=== PATIENT | male | born 1975 | race Caucasian/White ===

== ENCOUNTER 2022-06-24 10:37 | Emergency (ER) | payer OTHER ==
[~2022-06-24] VITALS: Ht 165.1 cm; Wt 59.1 kg
[2022-06-24 10:53] VITALS: BP 152/93
[2022-06-24 11:05] LABS: GLUCOMETER DEV NAME(LOC) ERT.5; GLUCOSE,POINT OF CARE 174 MG/DL (70-110)
== END 2022-06-24 11:36 | disposition left against medical advice (07) ==
LOC: EMS 10:47
DX: Z53.21 Procedure and treatment not carried out due to patient leaving prior to being seen by health care provider (principal); E11.9 Type 2 diabetes mellitus without complications
CPT/HCPCS: 82962

== ENCOUNTER 2022-06-27 10:59 | Emergency (ER) | payer OTHER ==
[~2022-06-27] VITALS: Ht 167.6 cm; Wt 61.8 kg
[2022-06-27] MEDS ORDERED: DOXYCYCLINE HYCLATE 100 MG TABLET PO ONE ×2 (12:00→12:15)
[2022-06-27] MEDS ORDERED: LIDOCAINE 1% 10 ML VIAL SQ ONE (12:00)
[2022-06-27] MEDS ORDERED: CEPHALEXIN MONOHYDRATE 500 MG CAPSULE PO ONE ×2 (12:00→12:15)
[2022-06-27] MEDS ORDERED: BENZTROPINE MESYLATE 1 MG TABLET PO ONE (12:15)
[2022-06-27] MEDS ORDERED: HALOPERIDOL LACTATE 5 MG/ML VIAL IM ONE (12:15)
[2022-06-27] MEDS ORDERED: IBUPROFEN 600 MG TABLET PO ONE (12:45)
[2022-06-27] MEDS ORDERED: CEPH-558 PO (12:57)
[2022-06-27] MEDS ORDERED: DOXY-354 PO (12:57)
[2022-06-27] MEDS ORDERED: IBUP-1554 PO (12:57)
[2022-06-27] MEDS ORDERED: HALO5TAB23 PO (12:57)
[2022-06-27] MEDS ORDERED: BENZ1TAB96 PO (12:57)
[2022-06-27 13:13] VITALS: BP 150/82
== END 2022-06-27 13:13 | disposition home or self-care (01) ==
LOC: EMS 11:02
DX: L03.011 Cellulitis of right finger (principal); L02.511 Cutaneous abscess of right hand; F20.0 Paranoid schizophrenia; F32.A Depression, unspecified; E11.9 Type 2 diabetes mellitus without complications; I10 Essential (primary) hypertension
CPT/HCPCS: 99284; 10060; 87205; 82962; 73130; 96372; 87070; J1630; J3490; 87186

== ENCOUNTER 2022-10-30 10:32 | Emergency (ER) | payer OTHER ==
[~2022-10-30] VITALS: Ht 170.2 cm; Wt 55.9 kg
[~2022-10-30 10:32] MED LIST: BENZ1TAB96 PO; CEPH-558 PO; DOXY-354 PO; HALO5TAB23 PO; IBUP-1554 PO
[2022-10-30 11:32] LABS: BASOPHILS % (AUTO) 0.7 % (0.0-2.0); EOSINOPHILS % (AUTO) 0.5 % (1.0-6.0); HEMATOCRIT 38.2 % (41-53); HEMOGLOBIN 12.5 g/dL (13.5-17.5); LYMPHOCYTES # (AUTO) 1.7 K/uL (1.0-4.8); LYMPHOCYTES % (AUTO) 20.5 % (22.0-44.0); MEAN CORPUSCULAR HEMOGLOBIN 30.5 pg (26.0-34.0); MEAN CORPUSCULAR HGB CONC 32.7 G/dL (31.0-37.0); MEAN CORPUSCULAR VOLUME 93 fL (80-100); MONOCYTES # (AUTO) 0.5 K/uL (0.1-1.0); MONOCYTES % (AUTO) 6.5 % (2.0-9.0); NEUTROPHILS # (AUTO) 5.9 K/uL (1.8-7.7); NEUTROPHILS % (AUTO) 71.8 % (40.0-70.0); PLATELET COUNT (AUTO) 336 K/uL (150-450); RED CELL DISTRIBUTION WIDTH 15.3 % (11.5-14.5)
[2022-10-30 11:42] LABS: ANION GAP 6 mmol/L (8-16); CALCIUM, TOTAL 8.6 mg/dL (8.8-10.5); CARBON DIOXIDE 30 mmol/L (22-29); CHLORIDE 104 mmol/L (98-107); CREATININE 0.85 mg/dL (0.60-1.30); GLOMERULAR FILTR. RATE CALC > 60 mL/min (>60); GLUCOSE,RANDOM 133 mg/dL (70-110); POTASSIUM 3.7 mmol/L (3.5-5.1); SODIUM SERUM 140 mmol/L (136-145); UREA NITROGEN, BLOOD 18 mg/dL (7-18)
[2022-10-30] MEDS ORDERED: OLANZapine 5 MG TABLET PO ONE (11:45)
[2022-10-30 11:48] LABS: ALANINE AMINOTRANSFERASE 47 U/L (12-78); ALBUMIN 3.7 g/dL (3.4-5.0); ALKALINE PHOSPHATASE 102 U/L (46-116); ASPARTATE AMINOTRANSFERASE 36 U/L (15-37); BILIRUBIN,TOTAL 0.4 mg/dL (0.1-1.0); TOTAL PROTEIN, SERUM 7.5 g/dL (6.4-8.2)
[2022-10-30 13:00] VITALS: BP 138/81
== END 2022-10-30 13:17 | disposition home or self-care (01) ==
LOC: EMS 10:50
DX: F20.9 Schizophrenia, unspecified (principal); F32.A Depression, unspecified; E11.9 Type 2 diabetes mellitus without complications; I10 Essential (primary) hypertension
CPT/HCPCS: 99284; 80053; 85025; 36415; G0480

== ENCOUNTER 2022-11-03 09:38 | Emergency (ER) | payer OTHER ==
[~2022-11-03] VITALS: Ht 170.2 cm; Wt 57.3 kg
[2022-11-03] MEDS ORDERED: OLAN5TAB52 PO (10:10)
[2022-11-03 11:03] LABS: ANION GAP 2 mmol/L (8-16); BASOPHILS % (AUTO) 0.9 % (0.0-2.0); CALCIUM, TOTAL 8.7 mg/dL (8.8-10.5); CARBON DIOXIDE 32 mmol/L (22-29); CHLORIDE 107 mmol/L (98-107); GLUCOSE,RANDOM 101 mg/dL (70-110); HEMATOCRIT 39.9 % (41-53); HEMOGLOBIN 13.2 g/dL (13.5-17.5); LYMPHOCYTES % (AUTO) 19.2 % (22.0-44.0); MEAN CORPUSCULAR HEMOGLOBIN 30.8 pg (26.0-34.0); MEAN CORPUSCULAR VOLUME 93 fL (80-100); MONOCYTES # (AUTO) 0.5 K/uL (0.1-1.0); MONOCYTES % (AUTO) 9.7 % (2.0-9.0); NEUTROPHILS # (AUTO) 3.7 K/uL (1.8-7.7); NEUTROPHILS % (AUTO) 69.2 % (40.0-70.0); PLATELET COUNT (AUTO) 322 K/uL (150-450); POTASSIUM 4.7 mmol/L (3.5-5.1); RED BLOOD CELL COUNT(AUTO) 4.28 MIL/uL (4.50-5.90); RED CELL DISTRIBUTION WIDTH 14.6 % (11.5-14.5); SODIUM SERUM 141 mmol/L (136-145); UREA NITROGEN, BLOOD 22 mg/dL (7-18)
[2022-11-03 11:04] LABS: GLOMERULAR FILTR. RATE CALC > 60 mL/min (>60)
[2022-11-03 11:10] LABS: ALANINE AMINOTRANSFERASE 36 U/L (12-78); ALBUMIN 3.7 g/dL (3.4-5.0); ALKALINE PHOSPHATASE 103 U/L (46-116); ASPARTATE AMINOTRANSFERASE 20 U/L (15-37); BILIRUBIN,TOTAL 0.2 mg/dL (0.1-1.0); TOTAL PROTEIN, SERUM 7.6 g/dL (6.4-8.2)
[2022-11-03 12:42] VITALS: BP 126/70
== END 2022-11-03 12:43 | disposition home or self-care (01) ==
LOC: EMS 09:40
DX: F20.9 Schizophrenia, unspecified (principal); F32.A Depression, unspecified; E11.9 Type 2 diabetes mellitus without complications; I10 Essential (primary) hypertension
CPT/HCPCS: 99284; 80053; 85025; 36415; G0480

== ENCOUNTER 2022-11-04 12:01 | Emergency (ER) | payer OTHER ==
[~2022-11-04] VITALS: Ht 167.6 cm; Wt 68.2 kg
[~2022-11-04 12:01] MED LIST changes: -CEPH-558 PO; -DOXY-354 PO; -IBUP-1554 PO; +OLAN5TAB52 PO
[2022-11-04 12:03] VITALS: BP 132/69
[2022-11-04 12:49] LABS: EOSINOPHILS % (AUTO) 1.7 % (1.0-6.0); HEMATOCRIT 36.6 % (41-53); HEMOGLOBIN 12.1 g/dL (13.5-17.5); LYMPHOCYTES # (AUTO) 1.5 K/uL (1.0-4.8); LYMPHOCYTES % (AUTO) 31.2 % (22.0-44.0); MEAN CORPUSCULAR HEMOGLOBIN 30.7 pg (26.0-34.0); MEAN CORPUSCULAR VOLUME 93 fL (80-100); MONOCYTES # (AUTO) 0.5 K/uL (0.1-1.0); MONOCYTES % (AUTO) 10.7 % (2.0-9.0); NEUTROPHILS # (AUTO) 2.6 K/uL (1.8-7.7); NEUTROPHILS % (AUTO) 55.4 % (40.0-70.0); PLATELET COUNT (AUTO) 290 K/uL (150-450); RED BLOOD CELL COUNT(AUTO) 3.94 MIL/uL (4.50-5.90); RED CELL DISTRIBUTION WIDTH 14.6 % (11.5-14.5)
[2022-11-04 12:57] LABS: ANION GAP 7 mmol/L (8-16); CALCIUM, TOTAL 8.5 mg/dL (8.8-10.5); CARBON DIOXIDE 28 mmol/L (22-29); CHLORIDE 108 mmol/L (98-107); CREATININE 0.69 mg/dL (0.60-1.30); GLUCOSE,RANDOM 117 mg/dL (70-110); POTASSIUM 3.7 mmol/L (3.5-5.1); SODIUM SERUM 143 mmol/L (136-145); UREA NITROGEN, BLOOD 18 mg/dL (7-18)
[2022-11-04 13:01] LABS: GLOMERULAR FILTR. RATE CALC > 60 mL/min (>60)
[2022-11-04 13:03] LABS: ALANINE AMINOTRANSFERASE 28 U/L (12-78); ALBUMIN 3.3 g/dL (3.4-5.0); ALKALINE PHOSPHATASE 94 U/L (46-116); ASPARTATE AMINOTRANSFERASE 19 U/L (15-37); BILIRUBIN,TOTAL 0.2 mg/dL (0.1-1.0); TOTAL PROTEIN, SERUM 6.7 g/dL (6.4-8.2)
== END 2022-11-04 14:00 | disposition left against medical advice (07) ==
LOC: EMS 12:34
DX: F20.9 Schizophrenia, unspecified (principal); F32.A Depression, unspecified; E11.9 Type 2 diabetes mellitus without complications; I10 Essential (primary) hypertension
CPT/HCPCS: 99283; 80053; 85025; 36415; G0480

== ENCOUNTER 2023-04-20 11:46 | Emergency (ER) | payer OTHER ==
[~2023-04-20] VITALS: Ht 162.6 cm; Wt 70.5 kg
[~2023-04-20 11:46] MED LIST changes: +BENZ1TAB84 PO; -BENZ1TAB96 PO
[2023-04-20 11:56] VITALS: BP 129/83; PULSE 89; RESP 20; TEMP 98.6
== END 2023-04-20 13:52 | disposition left against medical advice (07) ==
LOC: EMS 11:46
DX: Z53.21 Procedure and treatment not carried out due to patient leaving prior to being seen by health care provider (principal)
CPT/HCPCS: 99281; Z7502

== ENCOUNTER 2023-07-30 02:57 | Inpatient (IN) | payer MEDICAID, OTHER ==
[~2023-07-30] VITALS: Ht 170.2 cm; Wt 59.6 kg
[2023-07-30] MEDS ORDERED: OLANZapine 5 MG TABLET PO ONE (03:15)
[2023-07-30 04:44] LABS: BASOPHILS % (AUTO) 1.6 % (0.0-2.0); HEMATOCRIT 35.4 % (41-53); LYMPHOCYTES # (AUTO) 1.6 K/uL (1.0-4.8); LYMPHOCYTES % (AUTO) 26.5 % (22.0-44.0); MEAN CORPUSCULAR HEMOGLOBIN 32.1 pg (26.0-34.0); MEAN CORPUSCULAR VOLUME 94 fL (80-100); MONOCYTES # (AUTO) 0.7 K/uL (0.1-1.0); MONOCYTES % (AUTO) 12.1 % (2.0-9.0); NEUTROPHILS # (AUTO) 3.5 K/uL (1.8-7.7); NEUTROPHILS % (AUTO) 58.8 % (40.0-70.0); PLATELET COUNT (AUTO) 282 K/uL (150-450); RED BLOOD CELL COUNT(AUTO) 3.75 MIL/uL (4.50-5.90); RED CELL DISTRIBUTION WIDTH 14.1 % (11.5-14.5); WHITE BLOOD COUNT (AUTO) 5.9 K/uL (4.5-11.0)
[2023-07-30 04:52] LABS: ANION GAP 6 mmol/L (8-16); CALCIUM, TOTAL 8.6 mg/dL (8.8-10.5); CARBON DIOXIDE 29 mmol/L (22-29); CHLORIDE 104 mmol/L (98-107); CREATININE 0.85 mg/dL (0.60-1.30); GLOMERULAR FILTR. RATE CALC > 60 mL/min (>60); GLUCOSE,RANDOM 126 mg/dL (70-110); POTASSIUM 3.6 mmol/L (3.5-5.1); SODIUM SERUM 139 mmol/L (136-145); UREA NITROGEN, BLOOD 26 mg/dL (7-18)
[2023-07-30 04:56] LABS: COVID AG,FIA SOURCE NASAL SWAB
[2023-07-30 04:58] LABS: ALANINE AMINOTRANSFERASE 38 U/L (12-78); ALBUMIN 3.4 g/dL (3.4-5.0); ALKALINE PHOSPHATASE 65 U/L (46-116); ASPARTATE AMINOTRANSFERASE 23 U/L (15-37); BILIRUBIN,TOTAL 0.4 mg/dL (0.1-1.0); TOTAL PROTEIN, SERUM 6.6 g/dL (6.4-8.2)
[2023-07-30 05:06] LABS: ALCOHOL, BLOOD (SERUM) < 3 mg/dL (0-10)
[2023-07-30 05:20] LABS: SARS-COV2 (COVID) ANTIGEN,FIA Negative (Negative)
[2023-07-30 08:05] LABS: APPEARANCE,URINE CLEAR (CLEAR); BILIRUBIN,URINE NEGATIVE (NEGATIVE); COLOR,URINE COLORLESS (YELLOW); GLUCOSE, URINE (UA) NEGATIVE (NEGATIVE); KETONES,URINE NEGATIVE (NEGATIVE); LEUKOCYTE ESTERASE ,URINE NEGATIVE (NEGATIVE); NITRATE,URINE NEGATIVE (NEGATIVE); OCCULT BLOOD,URINE NEGATIVE (NEGATIVE); PROTEIN,URINE NEGATIVE (NEGATIVE); UROBILINOGEN,URINE <=1.0 mg/dL (<=1.0)
[2023-07-30 08:11] LABS: ALCOHOL, URINE DRUG SCREEN NEGATIVE (NEGATIVE); AMPHET/METH SCREEN,URINE POSITIVE (NEGATIVE); BARBITURATE SCREEN, URINE NEGATIVE (NEGATIVE); BENZODIAZEPINES SCREEN,URINE NEGATIVE (NEGATIVE); CANNABINOID SCREEN,URINE NEGATIVE (NEGATIVE); COCAINE SCREEN,URINE NEGATIVE (NEGATIVE); METHADONE SCREEN, URINE NEGATIVE (NEGATIVE); OPIATE SCREEN,URINE NEGATIVE (NEGATIVE); PHENCYCLIDINE SCREEN,URINE NEGATIVE (NEGATIVE)
[2023-07-30 09:06] LABS: GLUCOMETER DEV NAME(LOC) ERT.5; GLUCOSE,POINT OF CARE 92 MG/DL (70-110)
[2023-07-30 10:18] VITALS: BP 126/77; PULSE 82; RESP 18; TEMP 98.1; O2SAT 97
[2023-07-30 15:15] VITALS: BP 126/77; PULSE 82; RESP 18; TEMP 98.1
[2023-07-30] MEDS: OLANZapine 10 MG TABLET PO SCH (20:54)
[2023-07-30 22:13] VITALS: RESP 18
[2023-07-31 08:10] VITALS: BP 141/74; PULSE 60; RESP 18; TEMP 97
[2023-07-31] MEDS ORDERED: DOCUSATE SODIUM 100 MG CAPSULE PO PRN (10:30)
[2023-07-31] MEDS ORDERED: LOPERAMIDE HCL 2 MG CAPSULE PO PRN (10:30)
[2023-07-31] MEDS ORDERED: MAGNESIUM HYDROXIDE SUSPENSION 30 ML UDCUP PO PRN (10:30)
[2023-07-31] MEDS ORDERED: NICOTINE 14 MG/24 HOUR PATCH TD PRN (10:30)
[2023-07-31] MEDS ORDERED: GuaiFENesin/D-METHORPHAN [SUGAR-FREE] 200-20MG/10 ML SYRUP UDCUP PO PRN (10:30)
[2023-07-31] MEDS ORDERED: ONDANSETRON HCL 4 MG TABLET PO PRN (10:30)
[2023-07-31] MEDS ORDERED: IBUPROFEN 400 MG TABLET PO PRN (10:30)
[2023-07-31] MEDS ORDERED: ALBUTEROL SULFATE HFA 90 MCG/PUFF 8 GM INHALER IH PRN (10:30)
[2023-07-31] MEDS ORDERED: PETROLATUM,WHITE 28 GM JELLY TP PRN (10:30)
[2023-07-31] MEDS ORDERED: ACETAMINOPHEN 325 MG TABLET PO PRN (10:30)
[2023-07-31] MEDS ORDERED: CloNIDine HCL 0.1 MG TABLET PO PRN (10:30)
[2023-07-31] MEDS ORDERED: MAG HYDROX/ALUMINUM HYD/SIMETH ES 30 ML SUSPENSION UDCUP PO PRN (10:30)
[2023-07-31] MEDS: LORazepam 2 MG TABLET PO PRN (16:13)
[2023-07-31] MEDS: OLANZapine 10 MG TABLET PO SCH (20:14)
[2023-08-01 08:02] LABS: HEMOGLOBIN A1C 5.7 % (3.8-5.6)
[2023-08-01 08:14] VITALS: BP 130/87; PULSE 66; RESP 18; TEMP 97.6; O2SAT 98
[2023-08-01 08:21] LABS: CHOL/HDL RATIO 1.7 (4.2-7.3); THYROID STIMULATING HORMONE 0.72 uIU/mL (0.36-3.74)
[2023-08-01] MEDS: LORazepam 2 MG TABLET PO PRN (16:47)
[2023-08-01 20:06] VITALS: RESP 18
[2023-08-01] MEDS: OLANZapine 10 MG TABLET PO SCH (20:39)
[2023-08-01] MEDS: ZOLPIDEM TARTRATE 10 MG TABLET PO PRN (22:25)
[2023-08-02 08:01] VITALS: BP 130/76; PULSE 69; RESP 19; TEMP 98.1; O2SAT 98
[2023-08-02] MEDS: LORazepam 2 MG TABLET PO PRN (12:46)
[2023-08-02] MEDS: HALOPERIDOL 5 MG TABLET PO PRN (12:46)
[2023-08-02 20:16] VITALS: BP 128/72; PULSE 73; RESP 18; TEMP 97.9; O2SAT 98
[2023-08-02] MEDS: OLANZapine 10 MG TABLET PO SCH (20:53)
[2023-08-02] MEDS: ZOLPIDEM TARTRATE 10 MG TABLET PO PRN (22:31)
[2023-08-03 08:24] VITALS: RESP 17
[2023-08-03] MEDS: LORazepam 2 MG TABLET PO PRN ×2 (08:49→13:16)
[2023-08-03] MEDS: HALOPERIDOL 5 MG TABLET PO PRN ×2 (08:49→13:16)
[2023-08-03 20:19] VITALS: RESP 18
[2023-08-03] MEDS: OLANZapine 10 MG TABLET PO SCH (20:26)
[2023-08-04] MEDS: LORazepam 2 MG TABLET PO PRN ×3 (10:04→21:50)
[2023-08-04 13:08] VITALS: BP 114/68; PULSE 63; RESP 17; TEMP 97.9; O2SAT 99
[2023-08-04] MEDS: OLANZapine 10 MG TABLET PO SCH (20:19)
[2023-08-04 20:51] VITALS: RESP 18
[2023-08-04] MEDS: ZOLPIDEM TARTRATE 10 MG TABLET PO PRN (21:50)
[2023-08-05] MEDS: HALOPERIDOL 5 MG TABLET PO PRN ×2 (10:34→16:56)
[2023-08-05] MEDS: LORazepam 2 MG TABLET PO PRN ×2 (10:36→16:56)
[2023-08-05] MEDS: OLANZapine 10 MG TABLET PO SCH (20:22)
[2023-08-05 20:34] VITALS: BP 126/73; PULSE 90; RESP 18; TEMP 97.5; O2SAT 96
[2023-08-06] MEDS: ZOLPIDEM TARTRATE 10 MG TABLET PO PRN ×2 (00:06→21:07)
[2023-08-06 08:35] VITALS: BP 118/68; PULSE 78; RESP 18; TEMP 97.5; O2SAT 97
[2023-08-06] MEDS: LORazepam 2 MG TABLET PO PRN ×3 (11:34→23:16)
[2023-08-06] MEDS: HALOPERIDOL 5 MG TABLET PO PRN ×2 (11:34→17:30)
[2023-08-06 20:11] VITALS: BP 104/62; PULSE 88; RESP 18; TEMP 98.2; O2SAT 97
[2023-08-06] MEDS: OLANZapine 10 MG TABLET PO SCH (20:29)
[2023-08-07 08:35] VITALS: RESP 18; TEMP 98
[2023-08-07] MEDS: HALOPERIDOL 5 MG TABLET PO PRN ×3 (09:22→22:05)
[2023-08-07] MEDS: LORazepam 2 MG TABLET PO PRN ×3 (09:22→22:05)
[2023-08-07] MEDS: OLANZapine 10 MG TABLET PO SCH (20:34)
[2023-08-07 21:07] VITALS: BP 110/72; PULSE 82; RESP 19; TEMP 97.7; O2SAT 98
[2023-08-07] MEDS: ZOLPIDEM TARTRATE 10 MG TABLET PO PRN (21:15)
[2023-08-08 09:04] VITALS: BP 137/78; PULSE 95; RESP 18; TEMP 97.8; O2SAT 98
[2023-08-08] MEDS: LORazepam 2 MG TABLET PO PRN ×2 (09:04→17:23)
[2023-08-08] MEDS: HALOPERIDOL 5 MG TABLET PO PRN (15:44)
[2023-08-08] MEDS: OLANZapine 10 MG TABLET PO SCH (20:20)
[2023-08-08] MEDS: ZOLPIDEM TARTRATE 10 MG TABLET PO PRN (21:33)
[2023-08-09] MEDS: HALOPERIDOL 5 MG TABLET PO PRN ×3 (00:23→19:18)
[2023-08-09] MEDS: LORazepam 2 MG TABLET PO PRN ×4 (00:23→19:18)
[2023-08-09 11:19] VITALS: BP 148/87; PULSE 83; RESP 18; TEMP 97.7; O2SAT 98
[2023-08-09] MEDS: OLANZapine 10 MG TABLET PO SCH (20:19)
[2023-08-09 20:49] VITALS: RESP 18
[2023-08-09] MEDS: ZOLPIDEM TARTRATE 10 MG TABLET PO PRN (21:42)
[2023-08-10] MEDS: HALOPERIDOL 5 MG TABLET PO PRN ×2 (01:10→19:23)
[2023-08-10] MEDS: LORazepam 2 MG TABLET PO PRN ×2 (01:10→15:37)
[2023-08-10 08:26] VITALS: BP 106/68; PULSE 69; RESP 18; TEMP 97.5; O2SAT 97
[2023-08-10 18:56] VITALS: RESP 18
[2023-08-10 19:56] VITALS: RESP 18
[2023-08-10] MEDS: OLANZapine 10 MG TABLET PO SCH (20:13)
[2023-08-10] MEDS: ZOLPIDEM TARTRATE 10 MG TABLET PO PRN (21:22)
[2023-08-10 21:39] VITALS: RESP 18
[2023-08-10 21:40] VITALS: BP 115/75; PULSE 85; RESP 18; TEMP 98.1; O2SAT 98
[2023-08-11] MEDS ORDERED: OLAN10TA74 PO (08:39)
[2023-08-11 08:40] VITALS: BP 128/76; PULSE 78; RESP 19; TEMP 97.6; O2SAT 100
== END 2023-08-11 18:14 | disposition home or self-care (01) | DRG 750 ==
LOC: EMS 03:00 → 3EC 08:38
PROVIDERS: ADMIT Psychiatry & Neurology Psychiatry; ATTEND Psychiatry & Neurology Psychiatry
DX: F25.1 Schizoaffective disorder, depressive type (principal); R45.851 Suicidal ideations; E11.9 Type 2 diabetes mellitus without complications; I10 Essential (primary) hypertension; F15.10 Other stimulant abuse, uncomplicated; D64.9 Anemia, unspecified; Z20.822 Contact with and (suspected) exposure to COVID-19; Z79.899 Other long term (current) drug therapy
CPT/HCPCS: 80053; 80061; 80307; 81003; 82962; 83036; 84443; 85025; 99285; G0480